=== PATIENT | female | born 1955 ===

== ENCOUNTER 2022-01-11 03:54 | Emergency (ER) ==
[~2022-01-11] VITALS: Ht 147.3 cm; Wt 54.8 kg
[2022-01-11] MEDS ORDERED: CLON1TAB17 PO (04:23)
[2022-01-11] MEDS ORDERED: METO1TAB33 PO (04:23)
[2022-01-11] MEDS ORDERED: IBUP1TAB6 PO (04:23)
[2022-01-11] MEDS ORDERED: NITR0.3S SL (04:23)
[2022-01-11] MEDS ORDERED: MAXZ75TA PO (04:23)
== END 2022-01-11 06:33 | disposition left against medical advice (07) ==
LOC: M ED 03:54
DX: Z53.21 Procedure and treatment not carried out due to patient leaving prior to being seen by health care provider (principal)